=== PATIENT | male | born 1990 | race Caucasian/White ===

== ENCOUNTER → 2016-07-27 | Outpatient (CLI) | payer BC | LOC: KOH-I 11:47 | DX: S66.911A Strain of unspecified muscle, fascia and tendon at wrist and hand level, right hand, initial encounter (principal); S62.306D Unspecified fracture of fifth metacarpal bone, right hand, subsequent encounter for fracture with routine healing | CPT/HCPCS: 73110 ==

== ENCOUNTER 2020-03-07 22:08 | Emergency (ER) | payer BC ==
[2020-03-07 23:16] LABS: HEMOGLOBIN 17.1 gm/dl (14.0-17.5); RED BLOOD COUNT 5.55 M/UL (4.20-5.50)
[2020-03-07 23:25] LABS: BUN/CREATININE RATIO 20 (0-10)
[2020-03-08] MEDS ORDERED: PROTONIX40 MG PO (00:47)
[2020-03-08] MEDS ORDERED: MYLANTA MAXIMU355 ML PO (00:47)
== END 2020-03-08 01:08 | disposition home or self-care (01) ==
LOC: ER1 22:08
PROVIDERS: Family Medicine
DX: R10.13 Epigastric pain (principal); R11.2 Nausea with vomiting, unspecified; F17.210 Nicotine dependence, cigarettes, uncomplicated; Z90.49 Acquired absence of other specified parts of digestive tract
CPT/HCPCS: 80053; 81001; 82550; 82553; 83690; 84484; 85025; 99284

== ENCOUNTER 2021-08-26 16:37 | Emergency (ER) | payer BC ==
[~2021-08-26 16:37] MED LIST: MYLANTA MAXIMU355 ML PO; PROTONIX40 MG PO
[2021-08-26 17:05] LABS: HEMOGLOBIN 15.9 gm/dl (14.0-17.5); RED BLOOD COUNT 5.14 M/UL (4.20-5.50); WHITE BLOOD COUNT 11.6 K/UL (4.5-11.0)
[2021-08-26 18:19] LABS: BUN/CREATININE RATIO 19 (0-10)
== END 2021-08-26 22:19 | disposition home or self-care (01) ==
LOC: ER1 16:37
PROVIDERS: Physician Assistant
DX: R07.9 Chest pain, unspecified (principal); I10 Essential (primary) hypertension; Z90.49 Acquired absence of other specified parts of digestive tract; F17.210 Nicotine dependence, cigarettes, uncomplicated; Z88.0 Allergy status to penicillin; Z88.2 Allergy status to sulfonamides; Z88.5 Allergy status to narcotic agent
CPT/HCPCS: 71045; 80053; 82550; 82553; 84484; 85025; 85379; 93005; 99285